=== PATIENT | female | born 1995 | race African-American/Black ===

== ENCOUNTER 2017-09-25 11:20 | Emergency (ER) | payer OTHER ==
[2017-09-25 11:32] VITALS: BP 127/66; PULSE 84; TEMP 98.7; BMI 30.4
[2017-09-25] MEDS ORDERED: ACETAMINOPHEN 325 MG TABLET (FP) PO ONE (11:41)
--- NOTE | 2017-09-25 11:48 | PDOC ---
History of Present Illness - General Chief Complaint: Injury Stated Complaint: RIGHT ARM PAIN Time Seen by Provider: 09/25/17 11:41 History Source: Patient Exam Limitations: No Limitations - History of Present Illness Initial Comments: 09/25/17 11:43 22-year-old female no known past medical history here today status post right forearm injury. Patient was walking out of her work at [employer] when a piece of metal landed on her right arm mid forearm. Denies any decreased range of motion does feel she sees some swelling pain is moderate took ibuprofen prior to arrival here. Patient is left-hand dominant no prior injuries to that right arm denies any new numbness tingling or weakness no other injuries sustained during the event Past History - Past Medical History Allergies/Adverse Reactions: Allergies Allergy/AdvReac Type Severity Reaction Status Date / Time No Known Allergies Allergy Verified 09/25/17 11:25 Home Medications: Ambulatory Orders Ibuprofen [Motrin -] 600 mg PO TID #90 tablet 09/25/17 COPD: No - Immunization History Immunization Up to Date: Yes - Suicide/Smoking/Psychosocial Hx Smoking History: Never smoked Hx Alcohol Use: No Drug/Substance Use Hx: No Substance Use Type: None Review of Systems - Review of Systems Constitutional: No: Chills, Diaphoresis Respiratory: No: Cough, Orthopnea Cardiac (ROS): No: Chest Pain, Edema Musculoskeletal: Yes: Joint Pain. No: Back Pain Integumentary: No: Change in Color All Other Systems: Reviewed and Negative *Physical Exam - Vital Signs Last Vital Signs Temp Pulse Resp BP Pulse Ox 98.7 F 84 15 127/66 97 09/25/17 11:25 09/25/17 11:25 09/25/17 11:25 09/25/17 11:25 09/25/17 11:25 - Physical Exam General Appearance: Yes: Appropriately Dressed Neck: positive: Trachea midline Respiratory/Chest: positive: Lungs Clear, Normal Breath Sounds Cardiovascular: positive: Regular Rhythm, Regular Rate, S1, S2 Gastrointestinal/Abdominal: positive: Normal Bowel Sounds, Flat, Soft Musculoskeletal: positive: Normal Inspection, Other (Right forearm with minimal tenderness no noted ecchymosis or swelling. Elbow with full range of motion, wrist full range of motion nontender. Right shoulder following range of motion nontender distally patient is neurovascularly intact) Extremity: positive: Normal Capillary Refill, Normal Inspection, Normal Range of Motion, Tender (Examination of right forearm above) Neurologic: positive: Fully Oriented, Alert, Normal Mood/Affect ED Treatment Course - RADIOLOGY Radiology Studies Ordered: Category Date Time Status FOREARM- RIGHT [RAD] Stat Radiology 09/25/17 11:42 Ordered Medical Decision Making - Medical Decision Making 09/25/17 11:45 22-year-old female sustained right injury likely contusion to the right forearm. Plan to x-ray forearm rule out underlying fracture. Has taken Motrin prior to arrival will add Tylenol 650 mg pain control if negative will likely DC home with outpatient orthopedic follow-up as needed in one week 09/25/17 12:11 xray negative for fx. dc home. *DC/Admit/Observation/Transfer Diagnosis at time of Disposition: Contusion of right arm - Discharge Dispostion Condition at time of disposition: Improved Admit: No - Prescriptions Prescriptions: Ibuprofen [Motrin -] 600 mg PO TID #90 tablet - Referrals Referrals: Lorenzo Caba MD [Staff Physician] - - Patient Instructions Printed Discharge Instructions: Contusion Additional Instructions: He will be sore for up to 1 week. You can take Motrin 600 mg every 8 hours as needed for pain additionally can take Tylenol 500 mg every 6 hours as needed for pain. Follow-up with Dr. Caba or any orthopedist. See referral information for phone number and call to schedule within 2 weeks for pain beyond 1 week. He can apply ice and elevate to reduce swelling and pain any concerns for numbness tingling or weakness return for repeat evaluation. X-rays are negative for any broken bones in that region - Post Discharge Activity
[2017-09-25] MEDS ORDERED: ACETAMINOPHEN 325 MG TABLET (FP) ONE (11:54)
== END 2017-09-25 12:42 | disposition home or self-care (01) ==
LOC: FER 11:20
DX: S40.021A Contusion of right upper arm, initial encounter (principal); W20.8XXA Other cause of strike by thrown, projected or falling object, initial encounter; Y93.89 Activity, other specified; Y92.159 Unspecified place in reform school as the place of occurrence of the external cause; Y99.0 Civilian activity done for income or pay
CPT/HCPCS: 73090-TC-RT; 99281-25